=== PATIENT | female | born 1950 | race Caucasian/White ===

== ENCOUNTER 2025-02-08 22:32 | Day surgery (SDC) | payer MEDICARE ==
[2025-02-09] MEDS ORDERED: SUCCINYLCHOLINE/SOD CL,ISO/PF 200 MG/10 ML SYRINGE FS ONE (00:17)
[2025-02-09] MEDS ORDERED: PROPOFOL 200 MG/20 ML VIAL ONE (00:20)
[2025-02-09] MEDS ORDERED: Ondansetron PF 4 MG/2 ML Vial ONE (00:20)
== END 2025-02-09 02:11 | disposition home or self-care (01) ==
LOC: ERS 22:32 → SDC/OP 02-09 00:17
PROVIDERS: ATTEND Internal Medicine
PROC: 0D758ZZ Dilation of Esophagus, Via Natural or Artificial Opening Endoscopic (ICD-10-PCS; principal; 2025-02-08)
DX: K22.2 Esophageal obstruction (principal); K44.9 Diaphragmatic hernia without obstruction or gangrene; E78.5 Hyperlipidemia, unspecified; Z88.0 Allergy status to penicillin
CPT/HCPCS: 43233; 99285; C1726; J1100; J2405; J2704